=== PATIENT | female | born 1970 | race Caucasian/White ===

== ENCOUNTER 2020-03-13 13:51 | Emergency (ER) | payer OTHER ==
[~2020-03-13] VITALS: Ht 144.8 cm; Wt 54.4 kg
[2020-03-13 13:56] VITALS: Ht 144.8 cm; Wt 54.4 kg
[2020-03-13 15:02] LABS: BASOPHIL % 0.6 % (0-2); PLATELET COUNT 220 x10^3mcL (130-400); RED CELL DISTRIBUTION WIDTH 13.4 % (11.5-14.5)
[2020-03-13 15:52] LABS: CHLORIDE SERUM 101 mmol/L (98-107); POTASSIUM SERUM 4.8 mmol/L (3.5-5.1)
[2020-03-13 16:05] LABS: CALCIUM 9.6 mg/dL (8.5-10.1); CARBON DIOXIDE 25.6 mmol/L (21-32); GFR1 > 60 mL/min; GLUCOSE SERUM 113 mg/dL (74-106); LIPASE 124 IU/L (73-393); SODIUM SERUM 136 mmol/L (136-145)
[2020-03-13 16:33] VITALS: BP 121/75
== END 2020-03-13 16:33 | disposition home or self-care (01) ==
LOC: ED 13:51
PROVIDERS: Emergency Medicine
DX: F41.9 Anxiety disorder, unspecified (principal); R07.89 Other chest pain
CPT/HCPCS: Q0092